=== PATIENT | female | born 1930 | race Hispanic/Latino ===

== ENCOUNTER 2018-09-07 14:50 | Emergency (ER) | payer OTHER ==
[~2018-09-07 14:50] MED LIST: AMIO100T4 PO; APIX2.5T PO; ATOR10 PO; CARV6.25 PO; FOLI1TAB85 PO; LEVO75TA10 PO; TAMO20TA4 PO; TORS10TA18 PO
[2018-09-07] MEDS ORDERED: TETANUS/DIPHTHERIA TOXOID [ADULT] 0.5 ML VIAL IM ONE (15:43)
[2018-09-07] MEDS ORDERED: ACETAMINOPHEN 325 MG TAB ONE (15:48)
== END 2018-09-07 16:16 | disposition home or self-care (01) ==
LOC: EDH 14:50
DX: S42.302A Unspecified fracture of shaft of humerus, left arm, initial encounter for closed fracture (principal); S50.811A Abrasion of right forearm, initial encounter; I10 Essential (primary) hypertension; E78.5 Hyperlipidemia, unspecified; I48.91 Unspecified atrial fibrillation; Z85.51 Personal history of malignant neoplasm of bladder; Z85.3 Personal history of malignant neoplasm of breast; W18.2XXA Fall in (into) shower or empty bathtub, initial encounter; Y93.E5 Activity, floor mopping and cleaning; Y92.098 Other place in other non-institutional residence as the place of occurrence of the external cause; Y99.8 Other external cause status
CPT/HCPCS: 29105; 73030; 73060; 90471; 90714

== ENCOUNTER → 2020-03-19 | Outpatient (CLI) | payer MEDICARE ==
[~2020-03-19] MED LIST changes: -AMIO100T4 PO; -ATOR10 PO; +ATOR10TA69 PO; +CHOL100018 PO; -TORS10TA18 PO; +TORS20TA4 PO
== END | disposition home or self-care (01) ==
LOC: RAH 13:36
PROVIDERS: ATTEND Urology
DX: N20.2 Calculus of kidney with calculus of ureter (principal)
CPT/HCPCS: 78707; A9562

== ENCOUNTER → 2020-04-23 | Outpatient (CLI) | payer MEDICARE | END | disposition home or self-care (01) | LOC: RAH 12:39 | PROVIDERS: ATTEND Urology | DX: N20.2 Calculus of kidney with calculus of ureter (principal); K43.9 Ventral hernia without obstruction or gangrene; Z93.3 Colostomy status; L72.3 Sebaceous cyst | CPT/HCPCS: 74176 ==

== ENCOUNTER 2020-06-01 07:40 | Day surgery (SDC) | payer MEDICARE ==
[2020-05-31 14:42] LABS: BASOPHILS % (AUTO) 0.7 % (0.0-5.0); EOSINOPHILS % (AUTO) 1.8 % (0.0-8.0); HEMATOCRIT 43.8 % (36-48); LYMPHOCYTES % (AUTO) 33.5 % (21.0-51.0); MEAN CORPUSCULAR HGB CONC 32.9 g/dL (32.0-36.0); MEAN CORPUSCULAR VOLUME 88.3 fL (79-99); MONOCYTES % (AUTO) 7.3 % (3.0-13.0); NEUTROPHILS % (AUTO) 55.9 % (40.0-77.0); PLATELET COUNT (AUTO) 235 K/uL (130-400); RED BLOOD CELL COUNT(AUTO) 4.96 MIL/uL (4.00-5.50); RED CELL DISTRIBUTION WIDTH 14.1 % (11.0-15.5); WHITE BLOOD COUNT (AUTO) 11.5 K/uL (4.8-10.8)
[2020-05-31 14:54] LABS: INR 1.15 (0.85-1.15); PROTHROMBIN TIME 12.4 SEC (9.6-11.6)
[2020-05-31 15:09] LABS: CREATININE 1.9 mg/dL (0.5-1.5); POTASSIUM 3.7 mmol/L (3.5-5.1)
[~2020-06-01 07:40] MED LIST changes: +CHOL-34 PO; -CHOL100018 PO
[2020-06-01] MEDS ORDERED: SODIUM CHLORIDE 0.9% 1000ML 1,000 ML IV ONE (09:10)
[2020-06-01] MEDS ORDERED: IODIXANOL 320 MG/ML 100 ML VIAL ONE (12:34)
[2020-06-01] MEDS ORDERED: LIDOCAINE HCL 1% MDV 50ML VIAL ONE (12:35)
== END 2020-06-01 14:30 | disposition home or self-care (01) ==
LOC: DAH 07:40
PROVIDERS: ATTEND Urology
DX: N13.2 Hydronephrosis with renal and ureteral calculous obstruction (principal); Z90.12 Acquired absence of left breast and nipple; Z85.3 Personal history of malignant neoplasm of breast; Z85.51 Personal history of malignant neoplasm of bladder; Z79.899 Other long term (current) drug therapy; Z98.890 Other specified postprocedural states; Z79.01 Long term (current) use of anticoagulants
CPT/HCPCS: 36415; 50435; 80048; 85025; 85610; 85730; A4215; A4216; A4221; A4222; A4223 ×3; A4606; A4663; C1729; C1769; C1894; J1644; J3490; J7030; Q9967

== ENCOUNTER → 2020-09-22 | Outpatient (CLI) | payer MEDICARE ==
[~2020-09-22] MED LIST changes: +ACET500P24 PO; +CEPH500B PO
[2020-09-22 11:36] LABS: BASOPHILS % (AUTO) 0.8 % (0.0-5.0); EOSINOPHILS % (AUTO) 2.6 % (0.0-8.0); HEMATOCRIT 42.1 % (36-48); LYMPHOCYTES % (AUTO) 33.1 % (21.0-51.0); MEAN CORPUSCULAR HGB CONC 32.3 g/dL (32.0-36.0); MEAN CORPUSCULAR VOLUME 89.8 fL (79-99); MONOCYTES % (AUTO) 7.3 % (3.0-13.0); NEUTROPHILS % (AUTO) 55.2 % (40.0-77.0); PLATELET COUNT (AUTO) 198 K/uL (130-400); RED BLOOD CELL COUNT(AUTO) 4.69 MIL/uL (4.00-5.50); RED CELL DISTRIBUTION WIDTH 13.8 % (11.0-15.5); WHITE BLOOD COUNT (AUTO) 8.9 K/uL (4.8-10.8)
[2020-09-22 11:51] LABS: ALBUMIN 3.3 g/dL (3.5-5.0); CREATININE 1.8 mg/dL (0.5-1.5); POTASSIUM 4.1 mmol/L (3.5-5.1); TOTAL PROTEIN, SERUM 7.7 g/dL (6.0-8.3)
[2020-09-22 11:54] LABS: INR 1.1 (0.85-1.15); PROTHROMBIN TIME 11.9 SEC (9.6-11.6)
[2020-09-22 11:55] LABS: PARTIAL THROMBOPLASTIN TIME 28.3 SEC (26.3-35.5)
== END | disposition home or self-care (01) ==
LOC: EDSTATUS 10:00 → DAH 10:00
PROVIDERS: ATTEND Urology
DX: Z01.818 Encounter for other preprocedural examination (principal); N20.2 Calculus of kidney with calculus of ureter; Z79.01 Long term (current) use of anticoagulants
CPT/HCPCS: 36415; 80053; 85025; 85610; 85730; 93005

== ENCOUNTER 2020-10-09 09:21 | Emergency (ER) | payer MEDICARE ==
[~2020-10-09] VITALS: Ht 152.4 cm; Wt 54.4 kg
[~2020-10-09 09:21] MED LIST changes: -ACET500P24 PO; -CEPH500B PO
[2020-10-09 09:22] VITALS: BP 120/62
[2020-10-09 09:49] LABS: BASOPHILS % (AUTO) 0.9 % (0.0-5.0); EOSINOPHILS % (AUTO) 3.1 % (0.0-8.0); HEMATOCRIT 40.4 % (36-48); LYMPHOCYTES % (AUTO) 34.7 % (21.0-51.0); MEAN CORPUSCULAR HEMOGLOBIN 28.9 pg (27.0-33.0); MEAN CORPUSCULAR HGB CONC 33.4 g/dL (32.0-36.0); MEAN CORPUSCULAR VOLUME 86.5 fL (79-99); MONOCYTES % (AUTO) 7.3 % (3.0-13.0); NEUTROPHILS % (AUTO) 53.4 % (40.0-77.0); PLATELET COUNT (AUTO) 191 K/uL (130-400); RED BLOOD CELL COUNT(AUTO) 4.67 MIL/uL (4.00-5.50); RED CELL DISTRIBUTION WIDTH 14.1 % (11.0-15.5); WHITE BLOOD COUNT (AUTO) 7.8 K/uL (4.8-10.8)
[2020-10-09 09:59] LABS: CREATININE 1.9 mg/dL (0.5-1.5); POTASSIUM 3.2 mmol/L (3.5-5.1)
[2020-10-09 10:04] LABS: ALBUMIN 3.2 g/dL (3.5-5.0); BILIRUBIN,TOTAL 1.1 mg/dL (0.2-1.0); TOTAL PROTEIN, SERUM 7.3 g/dL (6.0-8.3)
[2020-10-09 11:46] LABS: APPEARANCE,URINE Turbid (CLEAR); BILIRUBIN,URINE Negative (NEGATIVE); COLOR,URINE Yellow (YELLOW); GLUCOSE, URINE (UA) Negative (NEGATIVE); KETONES,URINE Negative (NEGATIVE); LEUKOCYTE ESTERASE ,URINE Large (NEGATIVE); NITRATE,URINE Negative (NEGATIVE); OCCULT BLOOD,URINE Moderate (NEGATIVE); PH,URINE >=9.0 (5.0-8.0); PROTEIN,URINE POS 2+ mg/dL (NEGATIVE); UROBILINOGEN,URINE 0.2 mg/dL (0.2-1.0)
[2020-10-09 11:57] LABS: BACTERIA,URINE Many /HPF (None Seen)
[2020-10-09 11:58] LABS: AMORPHOUS SEDIMENT,UR Moderate /LPF (None Seen); TRIPLE PHOSPHATE CRYSTAL,UR Moderate /LPF (None Seen)
[2020-10-09] MEDS ORDERED: CEFTRIAXONE 1G VIAL IVP ONE (12:30)
[2020-10-09] MEDS ORDERED: ACETAMINOPHEN 500 MG TABLET PO ONE (12:30)
[2020-10-09] MEDS ORDERED: CEPH500B PO (12:43)
[2020-10-09] MEDS ORDERED: ACET500P24 PO (12:43)
== END 2020-10-09 14:00 | disposition home or self-care (01) ==
LOC: EDH 09:21
DX: N39.0 Urinary tract infection, site not specified (principal); Z85.51 Personal history of malignant neoplasm of bladder; Z79.899 Other long term (current) drug therapy; Z79.01 Long term (current) use of anticoagulants; Z88.0 Allergy status to penicillin
CPT/HCPCS: 36415; 74176; 80053; 81001; 85025; 87088; 96374; 99284; J0696; 87077; 87186

== ENCOUNTER 2020-10-25 07:33 | Day surgery (SDC) | payer MEDICARE ==
[2020-10-22 11:37] LABS: BASOPHILS % (AUTO) 0.9 % (0.0-5.0); EOSINOPHILS % (AUTO) 2.7 % (0.0-8.0); HEMATOCRIT 40.5 % (36-48); LYMPHOCYTES % (AUTO) 36.1 % (21.0-51.0); MEAN CORPUSCULAR HEMOGLOBIN 28.7 pg (27.0-33.0); MEAN CORPUSCULAR HGB CONC 31.4 g/dL (32.0-36.0); MEAN CORPUSCULAR VOLUME 91.6 fL (79-99); MONOCYTES % (AUTO) 5.9 % (3.0-13.0); NEUTROPHILS % (AUTO) 53.5 % (40.0-77.0); PLATELET COUNT (AUTO) 174 K/uL (130-400); RED BLOOD CELL COUNT(AUTO) 4.42 MIL/uL (4.00-5.50); WHITE BLOOD COUNT (AUTO) 8.5 K/uL (4.8-10.8)
[2020-10-22 11:49] LABS: CREATININE 1.7 mg/dL (0.5-1.5); POTASSIUM 4.1 mmol/L (3.5-5.1)
[2020-10-22 12:19] LABS: INR 1.01 (0.85-1.15)
[2020-10-22 12:20] LABS: PARTIAL THROMBOPLASTIN TIME 25.8 SEC (26.3-35.5)
[~2020-10-25 07:33] MED LIST changes: +ACET500P24 PO; +CEPH500B PO
[2020-10-25] MEDS ORDERED: 0.9%NACL 1000ML 1,000 ML IV ONE (08:02)
[2020-10-25] MEDS ORDERED: IODIXANOL 320 MG/ML 100 ML VIAL ONE (09:34)
[2020-10-25] MEDS ORDERED: LIDOCAINE HCL 1% MDV 50ML VIAL ONE (09:35)
== END 2020-10-25 11:20 | disposition home or self-care (01) ==
LOC: DAH 07:33
PROVIDERS: ATTEND Urology
DX: N13.2 Hydronephrosis with renal and ureteral calculous obstruction (principal); Z20.822 Contact with and (suspected) exposure to COVID-19; N19 Unspecified kidney failure; G30.9 Alzheimer's disease, unspecified; F02.80 Dementia in other diseases classified elsewhere, unspecified severity, without behavioral disturbance, psychotic disturbance, mood disturbance, and anxiety; Z79.01 Long term (current) use of anticoagulants; Z79.1 Long term (current) use of non-steroidal anti-inflammatories (NSAID); Z85.51 Personal history of malignant neoplasm of bladder; Z85.3 Personal history of malignant neoplasm of breast
CPT/HCPCS: 36415; 50435; 80048; 85025; 85610; 85730; A4215; A4221; A4222; A4223; A4606; A4663; C1729; C1769 ×2; J1644; J3490; J7030; Q9967

== ENCOUNTER 2020-12-11 19:42 | Inpatient (IN) | payer MEDICARE ==
[~2020-12-11] VITALS: Ht 149.9 cm; Wt 68.0 kg
[2020-12-11 20:31] LABS: BASOPHILS % (AUTO) 0.4 % (0.0-5.0); EOSINOPHILS % (AUTO) 3.2 % (0.0-8.0); HEMATOCRIT 39.1 % (36-48); MEAN CORPUSCULAR HGB CONC 33.5 g/dL (32.0-36.0); MEAN CORPUSCULAR VOLUME 86.7 fL (79-99); MONOCYTES % (AUTO) 5.8 % (3.0-13.0); NEUTROPHILS % (AUTO) 70.8 % (40.0-77.0); PLATELET COUNT (AUTO) 228 K/uL (130-400); RED BLOOD CELL COUNT(AUTO) 4.51 MIL/uL (4.00-5.50); RED CELL DISTRIBUTION WIDTH 13.8 % (11.0-15.5); WHITE BLOOD COUNT (AUTO) 10.8 K/uL (4.8-10.8)
[2020-12-11 20:43] LABS: CREATININE 1.8 mg/dL (0.5-1.5); POTASSIUM 3.6 mmol/L (3.5-5.1)
[2020-12-11 20:48] LABS: ALBUMIN 2.9 g/dL (3.5-5.0); BILIRUBIN,TOTAL 0.9 mg/dL (0.2-1.0); TOTAL PROTEIN, SERUM 7.6 g/dL (6.0-8.3)
[2020-12-12 03:43] LABS: APPEARANCE,URINE Cloudy (CLEAR); BILIRUBIN,URINE Negative (NEGATIVE); COLOR,URINE Yellow (YELLOW); GLUCOSE, URINE (UA) Negative (NEGATIVE); KETONES,URINE Negative (NEGATIVE); LEUKOCYTE ESTERASE ,URINE Large (NEGATIVE); NITRATE,URINE Negative (NEGATIVE); OCCULT BLOOD,URINE Moderate (NEGATIVE); PROTEIN,URINE POS 1+ mg/dL (NEGATIVE); UROBILINOGEN,URINE 0.2 mg/dL (0.2-1.0)
[2020-12-12 04:03] LABS: RBC,URINE 0-1 /HPF (0-1); WBC,URINE >100 /HPF (0-1)
[2020-12-12 04:04] LABS: BACTERIA,URINE Few /HPF (None Seen)
[2020-12-12] MEDS ORDERED: LEVOFLOXACIN 500 MG/D5W 100 ML 100 ML IV ONE (04:30)
[2020-12-12] MEDS ORDERED: ONDANSETRON 4MG INJ ONE (04:34)
[2020-12-12] MEDS ORDERED: MORPHINE 2 MG SYG ONE (04:34)
[2020-12-12] MEDS ORDERED: ACETAMINOPHEN 325 MG TAB PO PRN ×2 (05:00)
[2020-12-12] MEDS ORDERED: DiphenhydrAMINE HCL 50 MG/ML VIAL IV PRN (05:00)
[2020-12-12] MEDS ORDERED: ONDANSETRON 4MG INJ IVP ONE (05:00)
[2020-12-12] MEDS ORDERED: MORPHINE 2 MG SYG IVP ONE (05:00)
[2020-12-12] MEDS ORDERED: HYDROCODONE/ACETAMINOPHEN 5/325 MG TAB PO PRN (05:00)
[2020-12-12] MEDS ORDERED: MAG/ALUM/SIMETH 30 ML UDCUP PO PRN (05:00)
[2020-12-12] MEDS ORDERED: 0.9% NACL 500ML IV.SOLN 500 ML IV SCH (05:00)
[2020-12-12] MEDS ORDERED: LACTULOSE 20 GM/30 ML UDCUP PO PRN (05:00)
[2020-12-12] MEDS ORDERED: ONDANSETRON 4MG INJ IV PRN (05:00)
[2020-12-12] MEDS ORDERED: MORPHINE 4 MG SYG IV PRN (05:00)
[2020-12-12] MEDS: 0.9%NACL 1000ML 1,000 ML IV SCH ×2 (06:11→21:27)
[2020-12-12] MEDS ORDERED: FOLI1TAB85 PO (07:27)
[2020-12-12] MEDS ORDERED: CARV6.25 PO (07:29)
[2020-12-12] MEDS ORDERED: ATOR10 PO (07:29)
[2020-12-12] MEDS ORDERED: TORS20TA4 PO (07:29)
[2020-12-12] MEDS ORDERED: TAMO20TA4 PO (07:29)
[2020-12-12] MEDS ORDERED: LEVO75CA5 PO (07:29)
[2020-12-12] MEDS: FAMOTIDINE 20MG VIAL IV SCH (09:32)
[2020-12-12 16:49] LABS: HEMATOCRIT 35.4 % (36-48)
[2020-12-13 07:12] LABS: HEMATOCRIT 35.2 % (36-48); MEAN CORPUSCULAR HEMOGLOBIN 28.5 pg (27.0-33.0); MEAN CORPUSCULAR VOLUME 86.5 fL (79-99); RED BLOOD CELL COUNT(AUTO) 4.07 MIL/uL (4.00-5.50)
[2020-12-13 07:19] LABS: CREATININE 2.3 mg/dL (0.5-1.5); POTASSIUM 3.1 mmol/L (3.5-5.1)
[2020-12-13 08:07] LABS: INR 1.26 (0.85-1.15); PROTHROMBIN TIME 13.4 SEC (9.6-11.6)
[2020-12-13 08:08] LABS: PARTIAL THROMBOPLASTIN TIME 32.4 SEC (26.3-35.5)
[2020-12-13] MEDS ORDERED: LEVOFLOXACIN 500 MG/D5W 100 ML 100 ML IV SCH (09:30)
[2020-12-13] MEDS: FAMOTIDINE 20MG VIAL IV SCH (10:35)
[2020-12-13] MEDS: LEVOFLOXACIN 250 MG/D5W 50ML 50 ML IVPB SCH (10:40)
[2020-12-13] MEDS ORDERED: LIDOCAINE HCL 1% MDV 50ML VIAL ONE (12:38)
[2020-12-13] MEDS ORDERED: IODIXANOL 320 MG/ML 100 ML VIAL ONE (12:41)
[2020-12-13] MEDS: 0.9%NACL 1000ML 1,000 ML IV SCH (15:17)
[2020-12-14] VITALS (11 sets, daily range): BP systolic 125–156; BP diastolic 47–97
[2020-12-14 06:27] LABS: BASOPHILS % (AUTO) 0.2 % (0.0-5.0); EOSINOPHILS % (AUTO) 0.1 % (0.0-8.0); HEMATOCRIT 37.8 % (36-48); LYMPHOCYTES % (AUTO) 7.7 % (21.0-51.0); MEAN CORPUSCULAR HEMOGLOBIN 28.9 pg (27.0-33.0); MEAN CORPUSCULAR HGB CONC 32.3 g/dL (32.0-36.0); MEAN CORPUSCULAR VOLUME 89.6 fL (79-99); MONOCYTES % (AUTO) 5.4 % (3.0-13.0); NEUTROPHILS % (AUTO) 85.3 % (40.0-77.0); PLATELET COUNT (AUTO) 161 K/uL (130-400); RED BLOOD CELL COUNT(AUTO) 4.22 MIL/uL (4.00-5.50); RED CELL DISTRIBUTION WIDTH 14.4 % (11.0-15.5); WHITE BLOOD COUNT (AUTO) 16.5 K/uL (4.8-10.8)
[2020-12-14 06:34] LABS: CREATININE 2.3 mg/dL (0.5-1.5); POTASSIUM 3.3 mmol/L (3.5-5.1)
[2020-12-14] MEDS: FAMOTIDINE 20MG VIAL IV SCH (09:44)
[2020-12-14] MEDS: LEVOFLOXACIN 250 MG/D5W 50ML 50 ML IVPB SCH (09:45)
[2020-12-14] MEDS: 0.9%NACL 1000ML 1,000 ML IV SCH ×2 (09:58→19:22)
[2020-12-14] MEDS ORDERED: MEROPENEM 1 GM VIAL IVP SCH (11:00)
[2020-12-14] MEDS ORDERED: CARVEDILOL 3.125 MG TABLET PO ONE (11:19)
[2020-12-14] MEDS ORDERED: CARVEDILOL 3.125 MG TABLET PO SCH ×2 (11:21→21:00)
[2020-12-14] MEDS: Vitamin B Complex/Vit C/Folic Acid PO SCH (12:27)
[2020-12-14] MEDS: MEROPENEM 1 GM VIAL IVP SCH ×2 (14:20→22:16)
[2020-12-14] MEDS: TAMOXIFEN CITRATE 10 MG TABLET PO SCH (14:21)
[2020-12-14] MEDS: APIXABAN 2.5 MG TABLET PO SCH (20:03)
[2020-12-14] MEDS: ATORVASTATIN 10 MG TABLET PO SCH (20:03)
[2020-12-15] VITALS (7 sets, daily range): BP systolic 121–145; BP diastolic 62–78
[2020-12-15] MEDS: MEROPENEM 1 GM VIAL IVP SCH ×3 (06:16→20:50)
[2020-12-15] MEDS: LEVOTHYROXINE 75 MCG TABLET PO SCH (06:17)
[2020-12-15 07:00] LABS: BASOPHILS % (AUTO) 0.3 % (0.0-5.0); EOSINOPHILS % (AUTO) 1.2 % (0.0-8.0); HEMATOCRIT 35.7 % (36-48); LYMPHOCYTES % (AUTO) 11.3 % (21.0-51.0); MEAN CORPUSCULAR HEMOGLOBIN 28.6 pg (27.0-33.0); MEAN CORPUSCULAR HGB CONC 32.8 g/dL (32.0-36.0); MEAN CORPUSCULAR VOLUME 87.3 fL (79-99); MONOCYTES % (AUTO) 8.4 % (3.0-13.0); NEUTROPHILS % (AUTO) 77.2 % (40.0-77.0); PLATELET COUNT (AUTO) 134 K/uL (130-400); RED BLOOD CELL COUNT(AUTO) 4.09 MIL/uL (4.00-5.50); RED CELL DISTRIBUTION WIDTH 14.4 % (11.0-15.5); WHITE BLOOD COUNT (AUTO) 11.5 K/uL (4.8-10.8)
[2020-12-15 07:13] LABS: CREATININE 2.2 mg/dL (0.5-1.5); MAGNESIUM 2.3 mg/dL (1.80-2.40); POTASSIUM 3.2 mmol/L (3.5-5.1)
[2020-12-15] MEDS ORDERED: TAMOXIFEN CITRATE 20 MG PO SCH (09:00)
[2020-12-15] MEDS: FAMOTIDINE 20MG VIAL IV SCH (09:42)
[2020-12-15] MEDS: TAMOXIFEN CITRATE 10 MG TABLET PO SCH (09:43)
[2020-12-15] MEDS: Vitamin B Complex/Vit C/Folic Acid PO SCH (09:43)
[2020-12-15] MEDS: CARVEDILOL 6.25 MG TABLET PO SCH ×2 (09:43→20:50)
[2020-12-15] MEDS: APIXABAN 2.5 MG TABLET PO SCH ×2 (09:43→20:50)
[2020-12-15] MEDS: DEXTROSE 5%-WATER 1,000 ML IV SCH (11:45)
[2020-12-15] MEDS: KCL 20 MEQ ERTAB PO SCH (11:45)
[2020-12-15] MEDS: ATORVASTATIN 10 MG TABLET PO SCH (20:50)
[2020-12-16 03:30] VITALS: BP 135/63
[2020-12-16] MEDS: DEXTROSE 5%-WATER 1,000 ML IV SCH ×3 (03:52→20:13)
[2020-12-16] MEDS: MEROPENEM 1 GM VIAL IVP SCH ×3 (05:02→22:08)
[2020-12-16] MEDS: LEVOTHYROXINE 75 MCG TABLET PO SCH (05:49)
[2020-12-16 07:30] VITALS: BP 144/66
[2020-12-16] MEDS: Vitamin B Complex/Vit C/Folic Acid PO SCH (08:05)
[2020-12-16] MEDS: APIXABAN 2.5 MG TABLET PO SCH ×2 (08:06→20:13)
[2020-12-16] MEDS: FAMOTIDINE 20MG VIAL IV SCH (08:06)
[2020-12-16] MEDS: CARVEDILOL 6.25 MG TABLET PO SCH ×2 (08:06→20:12)
[2020-12-16] MEDS ORDERED: KCL 20 MEQ ERTAB PO SCH (08:30)
[2020-12-16] MEDS: KCL 20 MEQ ERTAB PO SCH (10:00)
[2020-12-16 11:00] VITALS: BP 129/55
[2020-12-16] MEDS: TAMOXIFEN CITRATE 10 MG TABLET PO SCH (12:34)
[2020-12-16 12:46] LABS: HEMATOCRIT 38.5 % (36-48); MEAN CORPUSCULAR HEMOGLOBIN 28.7 pg (27.0-33.0); MEAN CORPUSCULAR HGB CONC 32.5 g/dL (32.0-36.0); MEAN CORPUSCULAR VOLUME 88.3 fL (79-99); RED BLOOD CELL COUNT(AUTO) 4.36 MIL/uL (4.00-5.50); RED CELL DISTRIBUTION WIDTH 14.5 % (11.0-15.5); WHITE BLOOD COUNT (AUTO) 12.5 K/uL (4.8-10.8)
[2020-12-16 12:58] LABS: ALBUMIN 2.1 g/dL (3.5-5.0); CREATININE 2.3 mg/dL (0.5-1.5); POTASSIUM 3.6 mmol/L (3.5-5.1)
[2020-12-16 16:00] VITALS: BP 136/52
[2020-12-16] MEDS: ATORVASTATIN 10 MG TABLET PO SCH (20:10)
[2020-12-16] MEDS: BALSAM PERU/CASTOR OIL 60 GM TUBE TP SCH (20:10)
[2020-12-16 20:27] VITALS: BP 125/58
[2020-12-16 23:12] VITALS: BP 157/50
[2020-12-17] MEDS: DEXTROSE 5%-WATER 1,000 ML IV SCH ×2 (03:15→20:01)
[2020-12-17 03:47] LABS: BASOPHILS % (AUTO) 0.7 % (0.0-5.0); EOSINOPHILS % (AUTO) 4.5 % (0.0-8.0); HEMATOCRIT 34.3 % (36-48); LYMPHOCYTES % (AUTO) 18.4 % (21.0-51.0); MEAN CORPUSCULAR HEMOGLOBIN 28.8 pg (27.0-33.0); MEAN CORPUSCULAR HGB CONC 32.9 g/dL (32.0-36.0); MEAN CORPUSCULAR VOLUME 87.3 fL (79-99); MONOCYTES % (AUTO) 8.3 % (3.0-13.0); NEUTROPHILS % (AUTO) 61.7 % (40.0-77.0); PLATELET COUNT (AUTO) 135 K/uL (130-400); RED BLOOD CELL COUNT(AUTO) 3.93 MIL/uL (4.00-5.50); RED CELL DISTRIBUTION WIDTH 14.4 % (11.0-15.5); WHITE BLOOD COUNT (AUTO) 10.9 K/uL (4.8-10.8)
[2020-12-17 03:51] VITALS: BP 127/57
[2020-12-17 03:58] LABS: POTASSIUM 3.5 mmol/L (3.5-5.1)
[2020-12-17 04:55] LABS: ERYTHROCYTE SEDIMENTATION RATE 13 MM/HR (0-30)
[2020-12-17] MEDS: LEVOTHYROXINE 75 MCG TABLET PO SCH (05:01)
[2020-12-17] MEDS: MEROPENEM 1 GM VIAL IVP SCH ×3 (05:01→22:13)
[2020-12-17 07:40] VITALS: BP 110/51
[2020-12-17] MEDS: KCL 20 MEQ ERTAB PO SCH (08:41)
[2020-12-17] MEDS: CARVEDILOL 6.25 MG TABLET PO SCH ×2 (09:06→19:58)
[2020-12-17] MEDS: TAMOXIFEN CITRATE 10 MG TABLET PO SCH (09:07)
[2020-12-17] MEDS: Vitamin B Complex/Vit C/Folic Acid PO SCH (09:07)
[2020-12-17] MEDS: APIXABAN 2.5 MG TABLET PO SCH ×2 (09:08→19:59)
[2020-12-17] MEDS: BALSAM PERU/CASTOR OIL 60 GM TUBE TP SCH ×3 (09:08→19:59)
[2020-12-17] MEDS: FAMOTIDINE 20MG VIAL IV SCH (09:08)
[2020-12-17 11:10] VITALS: BP 106/51
[2020-12-17 13:22] LABS: INR 1.1 (0.85-1.15); PROTHROMBIN TIME 11.9 SEC (9.6-11.6)
[2020-12-17 15:43] VITALS: BP 109/56
[2020-12-17 19:52] VITALS: BP 110/52
[2020-12-17] MEDS: ATORVASTATIN 10 MG TABLET PO SCH (19:59)
[2020-12-17 23:15] VITALS: BP 109/50
[2020-12-18 04:00] LABS: EOSINOPHILS % (AUTO) 5.9 % (0.0-8.0); LYMPHOCYTES % (AUTO) 23.4 % (21.0-51.0); MEAN CORPUSCULAR HEMOGLOBIN 29.2 pg (27.0-33.0); MEAN CORPUSCULAR HGB CONC 33.1 g/dL (32.0-36.0); MEAN CORPUSCULAR VOLUME 88.2 fL (79-99); MONOCYTES % (AUTO) 6.2 % (3.0-13.0); NEUTROPHILS % (AUTO) 53.7 % (40.0-77.0); PLATELET COUNT (AUTO) 148 K/uL (130-400); RED BLOOD CELL COUNT(AUTO) 3.97 MIL/uL (4.00-5.50); RED CELL DISTRIBUTION WIDTH 14.4 % (11.0-15.5)
[2020-12-18 04:02] VITALS: BP 101/54
[2020-12-18 04:27] LABS: POTASSIUM 3.9 mmol/L (3.5-5.1)
[2020-12-18] MEDS: LEVOTHYROXINE 75 MCG TABLET PO SCH (05:09)
[2020-12-18] MEDS: MEROPENEM 1 GM VIAL IVP SCH ×3 (05:10→20:28)
[2020-12-18 07:49] VITALS: BP 109/48
[2020-12-18] MEDS: APIXABAN 2.5 MG TABLET PO SCH (07:52)
[2020-12-18] MEDS: CARVEDILOL 6.25 MG TABLET PO SCH (07:53)
[2020-12-18] MEDS: FAMOTIDINE 20MG VIAL IV SCH (07:53)
[2020-12-18] MEDS: Vitamin B Complex/Vit C/Folic Acid PO SCH (07:53)
[2020-12-18] MEDS: TAMOXIFEN CITRATE 10 MG TABLET PO SCH (09:51)
[2020-12-18] MEDS: BALSAM PERU/CASTOR OIL 60 GM TUBE TP SCH ×3 (09:52→20:33)
[2020-12-18] MEDS: KCL 20 MEQ ERTAB PO SCH (09:52)
[2020-12-18 11:03] VITALS: BP 101/52
[2020-12-18] MEDS ORDERED: FUROSEMIDE 40MG VIAL IV SCH (12:30)
[2020-12-18] MEDS: SPIRONOLACTONE 25 MG TAB PO SCH (13:03)
[2020-12-18] MEDS ORDERED: CARV6.25 PO (14:10)
[2020-12-18] MEDS: FAMOTIDINE 20MG TAB PO SCH (14:20)
[2020-12-18 16:17] VITALS: BP 106/56
[2020-12-18 19:42] VITALS: BP 124/55
[2020-12-18] MEDS: ATORVASTATIN 10 MG TABLET PO SCH (20:27)
[2020-12-18] MEDS: CARVEDILOL 3.125 MG TABLET PO SCH (20:27)
[2020-12-19 00:37] VITALS: BP 133/56
[2020-12-19 04:00] VITALS: BP 115/50
[2020-12-19 04:26] LABS: BASOPHILS % (AUTO) 0.3 % (0.0-5.0); EOSINOPHILS % (AUTO) 5.4 % (0.0-8.0); HEMATOCRIT 35.4 % (36-48); LYMPHOCYTES % (AUTO) 27.7 % (21.0-51.0); MEAN CORPUSCULAR HEMOGLOBIN 28.3 pg (27.0-33.0); MEAN CORPUSCULAR HGB CONC 32.8 g/dL (32.0-36.0); MEAN CORPUSCULAR VOLUME 86.3 fL (79-99); MONOCYTES % (AUTO) 6.9 % (3.0-13.0); NEUTROPHILS % (AUTO) 52.1 % (40.0-77.0); PLATELET COUNT (AUTO) 181 K/uL (130-400); RED CELL DISTRIBUTION WIDTH 14.3 % (11.0-15.5); WHITE BLOOD COUNT (AUTO) 11.6 K/uL (4.8-10.8)
[2020-12-19 04:31] LABS: CREATININE 2.1 mg/dL (0.5-1.5); POTASSIUM 3.4 mmol/L (3.5-5.1)
[2020-12-19] MEDS: LEVOTHYROXINE 75 MCG TABLET PO SCH (06:18)
[2020-12-19] MEDS: MEROPENEM 1 GM VIAL IVP SCH ×2 (06:18→14:13)
[2020-12-19 08:08] VITALS: BP 122/62
[2020-12-19] MEDS: BALSAM PERU/CASTOR OIL 60 GM TUBE TP SCH ×2 (09:00→14:00)
[2020-12-19] MEDS: Vitamin B Complex/Vit C/Folic Acid PO SCH (09:48)
[2020-12-19] MEDS: TAMOXIFEN CITRATE 10 MG TABLET PO SCH (09:49)
[2020-12-19] MEDS: FAMOTIDINE 20MG TAB PO SCH (09:49)
[2020-12-19] MEDS: CARVEDILOL 3.125 MG TABLET PO SCH ×2 (09:49→21:39)
[2020-12-19] MEDS: TORSEMIDE 20 MG TAB PO SCH (09:49)
[2020-12-19] MEDS: KCL 20 MEQ ERTAB PO SCH ×2 (09:50→10:00)
[2020-12-19 11:23] VITALS: BP 119/70
[2020-12-19] MEDS: SPIRONOLACTONE 25 MG TAB PO SCH (12:30)
[2020-12-19 16:04] VITALS: BP 118/68
[2020-12-19 20:57] VITALS: BP 126/32
[2020-12-19] MEDS: ATORVASTATIN 10 MG TABLET PO SCH (21:38)
[2020-12-20 00:10] VITALS: BP 125/48
[2020-12-20 04:00] VITALS: BP 126/50
[2020-12-20] MEDS: LEVOTHYROXINE 75 MCG TABLET PO SCH (05:27)
[2020-12-20] MEDS: MEROPENEM 1 GM VIAL IVP SCH ×2 (05:27→16:23)
[2020-12-20] MEDS: BALSAM PERU/CASTOR OIL 60 GM TUBE TP SCH ×3 (05:28→14:00)
[2020-12-20] MEDS: KCL 20 MEQ ERTAB PO SCH ×2 (07:29→10:00)
[2020-12-20] MEDS: FAMOTIDINE 20MG TAB PO SCH (07:58)
[2020-12-20] MEDS: Vitamin B Complex/Vit C/Folic Acid PO SCH (07:58)
[2020-12-20] MEDS: TORSEMIDE 20 MG TAB PO SCH (07:58)
[2020-12-20] MEDS: CARVEDILOL 3.125 MG TABLET PO SCH (07:59)
[2020-12-20] MEDS: TAMOXIFEN CITRATE 10 MG TABLET PO SCH (08:00)
[2020-12-20 08:03] VITALS: BP 111/61
[2020-12-20] MEDS ORDERED: APIXABAN 2.5 MG TABLET PO SCH (10:00)
[2020-12-20 11:48] VITALS: BP 110/50
[2020-12-20 16:00] VITALS: BP 131/55
== END 2020-12-20 20:00 | DRG 871 ==
LOC: EDH 19:42 → EDHIP 12-12 04:47 → 2DH 12-14 03:30 → 4AH 12-16 03:40
PROVIDERS: ADMIT Hospitalist; ATTEND Hospitalist
PROC: 0T25X0Z Change Drainage Device in Kidney, External Approach (ICD-10-PCS; principal; 2020-12-13)
PROC: 02HV33Z Insertion of Infusion Device into Superior Vena Cava, Percutaneous Approach (ICD-10-PCS; 2020-12-17)
PROC: 05HB33Z Insertion of Infusion Device into Right Basilic Vein, Percutaneous Approach (ICD-10-PCS; 2020-12-17)
DX: A41.51 Sepsis due to Escherichia coli [E. coli] (principal); I21.A1 Myocardial infarction type 2; I50.33 Acute on chronic diastolic (congestive) heart failure; N13.6 Pyonephrosis; I13.0 Hypertensive heart and chronic kidney disease with heart failure and stage 1 through stage 4 chronic kidney disease, or unspecified chronic kidney disease; N18.4 Chronic kidney disease, stage 4 (severe); D68.59 Other primary thrombophilia; E87.1 Hypo-osmolality and hyponatremia; I31.3 Pericardial effusion (noninflammatory); I48.20 Chronic atrial fibrillation, unspecified; T82.838A Hemorrhage due to vascular prosthetic devices, implants and grafts, initial encounter; Z16.12 Extended spectrum beta lactamase (ESBL) resistance; Z16.24 Resistance to multiple antibiotics; T83.022A Displacement of nephrostomy catheter, initial encounter; E78.00 Pure hypercholesterolemia, unspecified; E87.6 Hypokalemia; Z20.822 Contact with and (suspected) exposure to COVID-19; E03.9 Hypothyroidism, unspecified; E78.5 Hyperlipidemia, unspecified; E87.8 Other disorders of electrolyte and fluid balance, not elsewhere classified; I25.10 Atherosclerotic heart disease of native coronary artery without angina pectoris; I35.1 Nonrheumatic aortic (valve) insufficiency; L89.156 Pressure-induced deep tissue damage of sacral region; B96.1 Klebsiella pneumoniae [K. pneumoniae] as the cause of diseases classified elsewhere; K57.90 Diverticulosis of intestine, part unspecified, without perforation or abscess without bleeding; R31.0 Gross hematuria; Y83.8 Other surgical procedures as the cause of abnormal reaction of the patient, or of later complication, without mention of misadventure at the time of the procedure; Y73.2 Prosthetic and other implants, materials and accessory gastroenterology and urology devices associated with adverse incidents; R53.81 Other malaise; Z74.01 Bed confinement status; Z79.01 Long term (current) use of anticoagulants; Z79.899 Other long term (current) drug therapy; Z93.3 Colostomy status; Z90.12 Acquired absence of left breast and nipple; Z87.442 Personal history of urinary calculi; Z88.0 Allergy status to penicillin; Z87.440 Personal history of urinary (tract) infections; Z85.528 Personal history of other malignant neoplasm of kidney; Z85.51 Personal history of malignant neoplasm of bladder; Z85.3 Personal history of malignant neoplasm of breast; Z88.8 Allergy status to other drugs, medicaments and biological substances; Y92.89 Other specified places as the place of occurrence of the external cause; Z82.49 Family history of ischemic heart disease and other diseases of the circulatory system
CPT/HCPCS: 36415; 50435; 71045; 74176; 80048; 80053; 81001; 82040; 82948; 83605; 83690; 83735; 84145; 84484; 85014; 85018; 85025; 85027; 85610; 85651; 85730; 87040; 87077; 87088; 87186; 87635; 93005; 93306; 97039; C1769; C1894; G0378; J1644; J1940; J1956; J2185; J2405; J3490; J7030; J7070; Q9967